=== PATIENT | male | born 1965 | race Caucasian/White ===

== ENCOUNTER 2017-10-07 05:41 | Emergency (ER) | payer BC ==
[2017-10-07 05:48] VITALS: BP 153/82; PULSE 80; RESP 18; TEMP 97.8
--- NOTE | 2017-10-07 06:32 | XR ---
EXAMINATION TYPE: XR shoulder complete RT DATE OF EXAM: 10/07/2017 COMPARISON: NONE HISTORY: Right shoulder pain injury TECHNIQUE: 3 views FINDINGS: I see no fracture nor dislocation. Joint spaces are normal. There are no pathologic calcifi cations. IMPRESSION: Negative right shoulder exam.
--- NOTE | 2017-10-07 06:42 | ED ---
Upper Extremity HPI - General Chief Complaint: Extremity Injury, Upper Stated Complaint: Shoulder Pain Time Seen by Provider: 10/07/17 06:02 Source: patient, RN notes reviewed, old records reviewed Mode of arrival: ambulatory Limitations: no limitations - History of Present Illness Initial Comments: This Patient is a 52-year-old male presents emergency Department chief plan right shoulder pain. He reports that 9 days ago he was trying to load his boat into the trailer. He reports that he had pulled himself by his right shoulder and feels like he maybe pulled something at that time. He states that since then been having difficulty with full range of motion of the shoulder. He reports the pain is worse with internal rotation. Patient states that he has no numbness or tingling or any elbow pain. Hand wrist pain. Denies any previous injuries to the shoulders. Patient reports he is otherwise generally healthy. - Related Data Previous Rx's Medication Instructions Recorded Ibuprofen 600 mg PO QID #30 tablet 10/07/17 traMADol HCL [Ultram] 50 mg PO Q4HR PRN 3 Days #18 tab 10/07/17 Allergies Allergy/AdvReac Type Severity Reaction Status Date / Time No Known Allergies Allergy Verified 10/07/17 05:48 Review of Systems ROS Statement: Those systems with pertinent positive or pertinent negative responses have been documented in the HPI. ROS Other: All systems not noted in ROS Statement are negative. Past Medical History Past Medical History: No Reported History History of Any Multi-Drug Resistant Organisms: None Reported Past Surgical History: No Surgical Hx Reported Past Psychological History: No Psychological Hx Reported Smoking Status: Never smoker Past Alcohol Use History: Occasional Past Drug Use History: None Reported General Exam - General Exam Comments Initial Comments: 52-year-old male. Alert and oriented. No acute distress. Limitations: no limitations General appearance: alert, in no apparent distress Head exam: Present: atraumatic Eye exam: Present: normal appearance, PERRL, EOMI. Absent: scleral icterus, conjunctival injection, periorbital swelling ENT exam: Present: normal exam, mucous membranes moist Neck exam: Present: normal inspection. Absent: tenderness, meningismus, lymphadenopathy Respiratory exam: Present: normal lung sounds bilaterally. Absent: respiratory distress, wheezes, rales, rhonchi, stridor Cardiovascular Exam: Present: regular rate, normal rhythm, normal heart sounds. Absent: systolic murmur, diastolic murmur, rubs, gallop, clicks GI/Abdominal exam: Present: soft, normal bowel sounds. Absent: distended, tenderness, guarding, rebound, rigid Extremities exam: Present: normal inspection, full ROM, normal capillary refill. Absent: tenderness, pedal edema, joint swelling, calf tenderness Right Shoulder Exam: Present: normal inspection, tenderness (Over supraspinatus and infraspinatus.). Absent: full ROM (Patient has pain with Apley scratch test on the posterior rotation.), swelling, abrasion, laceration, ecchymosis, deformity , crepitus, dislocation Upper Arm exam: Present: normal inspection, full ROM Elbow exam: Present: normal inspection, full ROM Forearm Wrist exam: Present: normal inspection, full ROM Hand Wrist exam: Present: normal inspection Back exam: Present: normal inspection Neurological exam: Present: alert, oriented X3, CN II-XII intact Psychiatric exam: Present: normal affect, normal mood Skin exam: Present: warm, dry, intact, normal color. Absent: rash Course Vital Signs 10/07/17 05:44 Temperature 97.8 F Pulse Rate 80 Respiratory 18 Rate Blood Pressure 153/82 O2 Sat by Pulse 98 Oximetry Medical Decision Making - Medical Decision Making This patient's a 50-year-old male presents emergency room today with a right shoulder injury for 9 days. He was loading his boat and had to hold onto the boat with his body weight on his right shoulder. 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 He states that today if he doesn't take Motrin [id number] the pain seems to be worse. Does have a positive Apley scratch test and posterior rotation. Patient x-ray was reviewed and negative for any acute process. I discussed this at [facility] rotator cuff tear. Usual follow-up with peer specialist. Given a referral for Dr. Perez as well as his request of Dr. norma Mejia. I discussed appropriate follow-up with primary care physician orthopedic. We'll discharge him with a short course of pain medicine. Discussed using a shoulder sling. We will. Discussed concern for frozen shoulder syndrome. Patient history plan will comply. Return parameters were discussed. - Radiology Data Radiology results: report reviewed Negative right shoulder exam Disposition Clinical Impression: Dysfunction of right rotator cuff Disposition: HOME SELF-CARE Condition: Good Instructions: Rotator Cuff Injury (ED) Additional Instructions: Patient advised to apply ice for 20 minutes periodically throughout the day for the shoulder. Patient should continue taking temperature medications. Use the pain medicine as directed. Continue to wear the sling intermittently. Continue to practice some range of motion to avoid getting a frozen shoulder syndrome. Return to the emergency department if any alarming signs or symptoms occur. Patient to follow-up with peer specialist. Prescriptions: Ibuprofen 600 mg PO QID #30 tablet traMADol HCL [Ultram] 50 mg PO Q4HR PRN 3 Days #18 tab PRN Reason: Pain Is patient prescribed a controlled substance at d/c from ED?: Yes When asked, does pt state using other controlled substances?: No If prescribed controlled substance>3 days was MAPS reviewed?: Prescribed <3 Days If opioid is for acute pain is fill amount 7 days or less?: Yes If Rx opioid, was Start Talking consent form obtained?: Yes Referrals: None,Stated [Primary Care Provider] - 1-2 days Paramjit Vegas DO [Doctor of Osteopathic Medicine] - 1-2 days Alyx Poon DO [Doctor of Osteopathic Medicine] - 1-2 days Time of Disposition: 06:40
== END 2017-10-07 07:00 | disposition home or self-care (01) ==
LOC: EC 05:41
DX: M75.81 Other shoulder lesions, right shoulder (principal); X50.1XXA Overexertion from prolonged static or awkward postures, initial encounter; Y93.89 Activity, other specified
CPT/HCPCS: 99284